=== PATIENT | female | born 1955 | race Caucasian/White ===

== ENCOUNTER 2018-02-08 05:20 | Inpatient (IN) ==
[2018-02-08] MEDS ORDERED: Chlorhexidine Gluconate 2% 1 Pack (2 Cloths) TOPICAL SCH (06:00)
[2018-02-08] MEDS ORDERED: Sodium Chlor 0.9% Inj 500 ML IV.SIG SCH (06:00)
[2018-02-08] MEDS ORDERED: Chlorhexidine 4% Topical 120 APPLIC/120 ML Bottle TOPICAL SCH (06:00)
[2018-02-08] MEDS ORDERED: ceFAZolin 2 GM Premix Inj 2 GM/50 ML PIGGYBACK IV.SIG SCH (06:00)
[2018-02-08] MEDS ORDERED: Vancomycin Inj 1,000 MG in Sodium Chlor 0.9% Inj 250 ML IV.SIG SCH (06:00)
[2018-02-08] MEDS ORDERED: Metoprolol Tartrate 25 MG Tablet PO SCH (06:00)
[2018-02-08] MEDS ORDERED: EPINEPHrine PF/SF Inj 1 MG/ML Ampul I-OCULAR ONE (06:45)
[2018-02-08] MEDS ORDERED: Bupivacaine/Dextrose 0.75% Inj 2 ML Ampul ONE (06:45)
[2018-02-08] MEDS ORDERED: Propofol Inj 500 MG/50 ML Vial ONE (06:47)
[2018-02-08] MEDS ORDERED: Bupivacaine PF 0.5% Inj 30 ML Vial ONE (06:55)
[2018-02-08] MEDS ORDERED: Sodium Chlor 0.9% Inj 73.07 ML, Ropivacaine 0.5% PF Inj 24.63 ML, Ketorolac Inj 30 MG, ... P-ARTICULR SCH ×5 (07:30)
--- NOTE | 2018-02-08 09:21 | P.BOP ---
- Preoperative Diagnosis (1) Osteoarthritis of knee, unilateral - Postoperative Diagnosis (1) Osteoarthritis of knee, unilateral Date of procedure: 02/08/18 Procedure: R TKR Anesthesia: GETA, regional, local Surgeon: Tunde Swan MD Tie Worker: Caroline Youngblood Estimated blood loss (mL): 25 Tourniquet time (min): 64 Pathology: none sent Condition: stable Disposition: PACU
[2018-02-08] MEDS ORDERED: Post-op Orders (for Pharmacy) OTHER STA (09:28)
[2018-02-08] MEDS ORDERED: Morphine Inj 4 MG/ML Vial IV.PUSH PRN (09:28)
[2018-02-08] MEDS ORDERED: Bisacodyl 10 MG Supp RECTAL PRN (09:28)
[2018-02-08] MEDS ORDERED: Zolpidem Tartrate 5 MG Tablet PO PRN (09:28)
--- NOTE | 2018-02-08 09:35 | P.DCO ---
- Physical Therapy Physical Therapy: Gait training, Transfer training, bed to chair Knee: Total knee, Protocol: Right, Full weight bearing - Nursing RN: 3 days/week x 2 weeks Nursing: Dressing changes (clean incision with alcohol and apply dry sterile dressing daily ) Additional instructions: aspirin 81 mg bid x 4 weeks dvt prop - Certification Need for Home Health services: I have seen patient Kaia Lara on 02/08/18. My clinical findings support the need for the requested home health care services because: Need for Home Health Services: Deconditioned with increased weakness, High risk of falls Homebound Certification: I certify that my clinical findings support that this patient is homebound because: Homebound Certification: Post-op weakness
[2018-02-08] MEDS ORDERED: *morphine SULFATE 4 MG/ML PERIprocedure ONLY ONE (09:40)
[2018-02-08] MEDS ORDERED: fentaNYL Citrate Inj 100 MCG/2 ML Ampul ONE (09:40)
--- NOTE | 2018-02-08 10:17 | XR ---
EXAM DATE: 02/08/2018 10:10 AM EDT AGE/SEX: 63 years / Female INDICATIONS: Post op right total knee replacement. CLINICAL DATA: This is the patient's initial encounter. Patient reports that signs and symptoms have been present for 1 day and indicates a pain score of Nonresponsive. MEDICAL/SURGICAL HISTORY: None. None. COMPARISON: No prior exams available for comparison. FINDINGS: Right knee arthroplasty in place. Arthroplasty components are in anatomic alignment and well position ed. No significant fracture. Immediate postsurgical soft tissue features. CONCLUSION: 1. Right knee arthroplasty in anatomic alignment without fracture. Electronically signed by: Haim Arthur MD 02/08/2018 10:16 AM EDT
--- NOTE | 2018-02-08 12:08 | MP ---
cc: Tunde Swan MD, Gregory DATE OF OPERATION: 02/08/2018 PREOPERATIVE DIAGNOSIS: Right knee severe tricompartment osteoarthritis, genu varus deformity. POSTOPERATIVE DIAGNOSIS: Right knee severe tricompartment osteoarthritis, genu varus deformity. OPERATION PERFORMED: Right total knee arthroplasty. SURGEON: Tunde Swan MD COMPLICATIONS: Caroline Youngblood PA-C. TOURNIQUET TIME: 64 minutes at 250 mmHg. ANESTHESIA: General, adductor canal saphenous regional block, intraarticular block. COMPLICATIONS: None. ESTIMATED BLOOD LOSS: 25 mL. DRAIN: Two. DETAILS OF PROCEDURE: My fire control assistant, Ivy Youngblood PA-C, was present for the entirety of surgical case. She was medically necessary for the entire case, because of the complexity of case and to facilitate the performance of the procedure. The FLOOR FRAMER at the back table was not of the skill set for this case to manipulate the instruments, e.g. multiple tipped types of soft tissue retractors, trial implants, and permanent implants. The patient was brought to the operating room and had satisfactory anesthesia by , Department of Anesthesia. The right lower extremity was prepped and draped in the usual manner. The extremity was exsanguinated by elevation and tourniquet inflated at 250 mmHg. Anterior medial exposure of the knee was made. The patient was found to have significant varicose veins. Each of these were individually coagulated. Primary capsulotomy was performed. The patient was found to have severe tricompartmental osteoarthritis with a moderate degree of synovitis. The anterior cruciate ligament was removed. The posterior cruciate ligament was preserved. Prepatellar fat pad was surgically excised. Using the [employer] total knee arthroplasty system, IM guide was used for distal femur. This was to accept a 67.5 mm femoral component cut in 5 degree valgus. Extramedullary guide was used for the proximal tibia and this was to accept a 79 tibial component. Considerable time was made in terms of balancing the knee including removal of posterior osteophytes at the distal femur. In both flexion and extension the patient found to have excellent balance and resumption of stability with the 14 mm insert. Undersurface of the patella was removed to accept the 31 mm 3-pronged patellar prosthesis. All trial components were removed and preparation for cementing was made. Initially, the knee was injected with 100 mL of local anesthesia provided by the Department of Pharmacy. Two packages of high viscosity bone cement by [employer] was used. First, the tibial component was cemented, which was a 79 tibial component, then the femoral component, which was a 67.5 femoral component. The undersurface of the patella was cemented, which was a 31 mm 3-pronged patella prosthesis. A 14 x 79 lipped prosthesis was then used. All excess bone cement was removed. The tourniquet was deflated. The appropriate click mechanism was used to secure the tibial polyethylene plastic to the tibial tray. Wound itself was dry. Wound was irrigated with 4000 mL of sterile antibiotic solution. Closed over an 18 inch Hemovac drain. The capsule and extensor mechanism was closed in multiple interrupted #2 Ti-Cron sutures. Subcuticular 0 Vicryl and 2-0 Vicryl, skin with approximate skin steven. The patient tolerated the procedure well and arrived in the recovery room in stable and satisfactory condition. MD BRENDA Beauchamp/noemi , 09:15 AM , 09:25 AM
[2018-02-08] MEDS: Senna/Docusate Sodium 8.6/50 MG Tablet PO SCH (21:48)
[2018-02-09 06:43] LABS: Hematocrit 25.2 % (35.0-46.0); Hemoglobin 8.7 gm/dL (11.6-15.3)
--- NOTE | 2018-02-09 07:04 | P.PNOP ---
Subjective Interval history: pt doing well, mild post op right knee pain no sob, no chest pain ambulating well Physical Exam Vital signs: Vital Signs 02/08/18 09:45 02/08/18 09:58 02/08/18 10:00 Temperature 97.3 F L 97.6 F 97.3 F L Pulse Rate 72 77 71 Respiratory Rate 12 14 12 Blood Pressure 114/57 L 124/60 114/58 L Pulse Oximetry 98 100 100 02/08/18 10:15 02/08/18 10:30 02/08/18 10:45 Temperature 97.3 F L 97.3 F L 97.3 F L Pulse Rate 71 74 77 Respiratory Rate 12 12 12 Blood Pressure 111/58 L 110/58 L 109/59 L Pulse Oximetry 98 100 100 02/08/18 11:00 02/08/18 11:56 02/08/18 13:55 Temperature 97.6 F 97.3 F L Pulse Rate 74 74 Respiratory Rate 14 12 18 Blood Pressure 110/56 L 107/58 L Pulse Oximetry 92 L 99 02/08/18 17:18 02/08/18 20:00 02/09/18 00:00 Temperature 97.6 F 98.1 F 98.7 F Pulse Rate 83 86 87 Respiratory Rate 16 16 15 Blood Pressure 97/54 L 106/53 L 103/59 L Pulse Oximetry 96 95 95 02/09/18 02:06 02/09/18 04:00 Temperature 98.4 F Pulse Rate 85 Respiratory Rate 17 16 Blood Pressure 98/53 L Pulse Oximetry 95 Intake & Output 02/08/18 02/09/18 02/09/18 18:59 06:59 18:59 Intake Total 2920 / 2920 600 / 600 Output Total 1155 / 1155 150 / 150 Balance 1765 / 1765 450 / 450 Weight 86 kg Intake: IV 1500 / 1500 100 / 100 LR 1000 mL Inj 1,000 ML @ 30 1000 / 1000 mls/hr IV.SIG .Q24H [facility] Rx#: [id number] Vancomycin Inj 1,000 MG In NS 250 / 250 Inj 250 ML @ 250 mls/hr IV.SIG [employer] [facility] Rx#:[id number] Ancef 2 GM Premix Inj 2 gm In 50 / 50 50 ml @ 100 mls/hr IV.SIG [employer] [facility] Rx#:[id number] Ancef Inj 1,000 MG In NS Inj 200 / 200 100 / 100 100 ML @ 200 mls/hr IV.SIG Q6H [facility] Rx#:[id number] Oral 720 / 720 500 / 500 Anesthesia Amount 700 / 700 Output: Urine 600 / 600 Estimated Blood Loss 25 / 25 Wound Drainage 530 / 530 150 / 150 # 2 Right Knee 530 / 530 150 / 150 Other: # Voids 2 Date of Last Bowel Movement 02/07/18 02/07/18 Narrative: right knee dressing dry and intact no calf tenderness neg homans sign Results - Labs CBC & Chem 7: 02/09/18 05:54 Laboratory Results - last 24 hr 02/08/18 02/09/18 06:01 05:54 Hgb 8.7 L Hct 25.2 L Blood Type AB Positive Antibody Screen Negative MTS Gel Crossmatch See Detail - Imaging Impressions Knee X-Ray 02/08/18 09:27 CONCLUSION: 1. Right knee arthroplasty in anatomic alignment without fracture. Assessment and Plan - Problem List (1) Osteoarthritis of knee, unilateral Code(s): M17.10 - Unilateral primary osteoarthritis, unspecified knee Status: Acute - Assessment and Plan POD # 1 s/p R TKA PT-WBAT aspirin 81 mg bid x 4 weeks dvt prop discharge home today with [facility], orthopedically stable
[2018-02-09] MEDS ORDERED: Lidocaine PF 1% Inj 5 ML Syringe INFILTRATN ONE (07:51)
[2018-02-09] MEDS ORDERED: Phenylephrine/NS 1000 MCG/10ML Syringe IV.PUSH ONE (07:51)
[2018-02-09] MEDS: Senna/Docusate Sodium 8.6/50 MG Tablet PO SCH (08:35)
[2018-02-09] MEDS ORDERED: Famotidine 20 MG Tablet PO SCH (09:00)
== END 2018-02-09 14:27 | disposition home health service (06) ==
LOC: HSDI 05:20 → N06 11:21
PROVIDERS: ADMIT Orthopaedic Surgery Orthopaedic Surgery of the Spine; ATTEND Orthopaedic Surgery Orthopaedic Surgery of the Spine